=== PATIENT | male | born 1965 | race Caucasian/White ===

== ENCOUNTER 2023-10-07 06:47 | Emergency (ER) | payer BC ==
[2023-10-07 06:54] VITALS: RESP 18
--- NOTE | 2023-10-07 07:22 | ED ---
Extremity Problem HPI - General Chief complaint: Extremity Problem,Nontraumatic Stated complaint: Feet Pain Time Seen by Provider: 10/07/23 07:19 Source: patient, RN notes reviewed, old records reviewed Mode of arrival: wheelchair Limitations: no limitations - History of Present Illness Initial comments: This is a 57-year-old male to the ER for evaluation of severe right foot pain right leg pain and swelling pain and swelling actually in both legs with recent long driving and concern for DVT. Patient's pain does seem to be isolated in the right great toe with redness no trauma no other complaints MD Complaint: extremity pain, extremity swelling, joint swelling, joint pain -: days(s) Location: right, toe History of Same: Yes -: Yes arthralgia Radiation: proximal Severity scale (1-10): 5 Quality: aching Consistency: constant Improves with: nothing Worsens with: nothing Associated Symptoms: denies other symptoms - Related Data Previous Rx's Medication Instructions Recorded Indomethacin 25 mg PO TID #25 capsule 10/07/23 Allergies Allergy/AdvReac Type Severity Reaction Status Date / Time No Known Allergies Allergy Verified 10/07/23 06:52 Review of Systems ROS Statement: Those systems with pertinent positive or pertinent negative responses have been documented in the HPI. ROS Other: All systems not noted in ROS Statement are negative. Past Medical History Past Medical History: No Reported History History of Any Multi-Drug Resistant Organisms: None Reported Past Surgical History: No Surgical Hx Reported Past Psychological History: No Psychological Hx Reported Smoking Status: Never smoker Past Alcohol Use History: Occasional Past Drug Use History: None Reported General Exam Limitations: no limitations General appearance: alert, in no apparent distress Head exam: Present: atraumatic, normocephalic, normal inspection Eye exam: Present: normal appearance, PERRL, EOMI. Absent: scleral icterus, conjunctival injection, periorbital swelling ENT exam: Present: normal exam, mucous membranes moist Neck exam: Present: normal inspection. Absent: tenderness, meningismus, lymphadenopathy Respiratory exam: Present: normal lung sounds bilaterally. Absent: respiratory distress, wheezes, rales, rhonchi, stridor Cardiovascular Exam: Present: regular rate, normal rhythm, normal heart sounds. Absent: systolic murmur, diastolic murmur, rubs, gallop, clicks GI/Abdominal exam: Present: soft, normal bowel sounds. Absent: distended, tenderness, guarding, rebound, rigid Extremities exam: Present: normal inspection, full ROM, normal capillary refill. Absent: tenderness, pedal edema, joint swelling, calf tenderness Back exam: Present: normal inspection Neurological exam: Present: alert, oriented X3, CN II-XII intact Psychiatric exam: Present: normal affect, normal mood Skin exam: Present: warm, dry, intact, normal color. Absent: rash Course Vital Signs 10/07/23 10/07/23 06:50 09:38 Temperature 98.1 F 97.9 F Pulse Rate 79 70 Respiratory 18 18 Rate Blood Pressure 155/91 168/96 O2 Sat by Pulse 98 98 Oximetry - Reevaluation(s) Reevaluation #1: 10/07/23 08:32 Medical records reviewed Reevaluation #2: 10/07/23 08:32 Symptoms improved Reevaluation #3: 10/07/23 08:32 Patient informed of results questions answered Reevaluation #4: Was pt. sent in by a medical professional or institution (, PA, SALES OPERATIONS COORDINATOR, urgent care, hospital, or correction...) When possible be specific @ -no Did you speak to anyone other than the patient for history (EMS, parent, family, police, friend...)? What history was obtained from this source @ -no Did you review nursing and triage notes (agree or disagree)? Why? @ -agree Are old charts reviewed (outside hosp., previous admission, EMS record, old EKG, old radiological studies, urgent care reports/EKG's, correction records)? Report findings @ -yes Differential Diagnosis (chest pain, altered mental status, abdominal pain women, abdominal pain men, vaginal bleeding, weakness, fever, dyspnea, syncope, headache, dizziness, GI bleed, back pain, seizure, CVA, palpatations, mental health, musculoskeletal)? @ -prior EKG interpreted by me (3pts min.). @ -no X-rays interpreted by me (1pt min.). @ -yes negative for acute disease CT interpreted by me (1pt min.). @ -no U/S interpreted by me (1pt. min.). @ -yes negative for acute disease What testing was considered but not performed or refused? (CT, X-rays, U/S, labs)? Why? @ -none What meds were considered but not given or refused? Why? @ -none Did you discuss the management of the patient with other professionals (professionals i.e. , PA, SALES OPERATIONS COORDINATOR, lab, RT, psych nurse, social professionals, health analytics consultant, teacher, conservation enforcement officer, upper caser)? Give summary @ -no Was smoking cessation discussed for >3mins.? @ -no Was critical care preformed (if so, how long)? @ -no Were there social determinants of health that impacted care today? How? (Homelessness, low income, unemployed, alcoholism, drug addiction, transportation, low edu. Level, literacy, decrease access to med. care, [facility], rehab)? @ -none Was there de-escalation of care discussed even if they declined (Discuss DNR or withdrawal of care, Hospice)? DNR status @ -no What co-morbidities impacted this encounter? (DM, HTN, Smoking, COPD, CAD, Cancer, CVA, ARF, Chemo, Hep., AIDS, mental health diagnosis, sleep apnea, morbid obesity)? @ -none Was patient admitted / discharged? Hospital course, mention meds given and route, prescriptions, significant lab abnormalities, going to OR and other pertinent info. @ - 57 male with findings of gouty tophus patient will be placed on appropriate anti-inflammatories and can be discharged home Discharge gout Undiagnosed new problem with uncertain prognosis? @ -no Drug Therapy requiring intensive monitoring for toxicity (Heparin, Nitro, Insulin, Cardizem)? @ -no Were any procedures done? @ -no Diagnosis/symptom? @ - Acute, or Chronic, or Acute on Chronic? @ -Acute Uncomplicated (without systemic symptoms) or Complicated (systemic symptoms)? @ -Complicated Side effects of treatment? @ -no Exacerbation, Progression, or Severe Exacerbation? @ -exacerbation Poses a threat to life or bodily function? How? (Chest pain, [place], [place], pneumonia, PE, COPD, DKA, ARF, appy, cholecystitis, CVA, Diverticulitis, Homicidal, Suicidal, threat to staff... and all critical care pts) @ -no Medical Decision Making - Medical Decision Making 57 male with findings of gouty tophus patient will be placed on appropriate anti-inflammatories and can be discharged home - Radiology Data Radiology results: report reviewed (Ultrasound lower extremity negative DVT x- ray negative for acute disease), image reviewed Disposition Clinical Impression: Gouty arthritis of right great toe Disposition: HOME SELF-CARE Condition: Good Instructions (If sedation given, give patient instructions): Gout (ED) Prescriptions: Indomethacin 25 mg PO TID #25 capsule Is patient prescribed a controlled substance at d/c from ED?: No Referrals: None,Stated [Primary Care Provider] - 1-2 days Time of Disposition: 09:00
[2023-10-07] MEDS: INDOMETHACIN 25 MG CAP PO STA (08:54)
--- NOTE | 2023-10-07 09:02 | US ---
EXAMINATION TYPE: US venous doppler duplex LE BI DATE OF EXAM: 10/07/2023 8:19 AM COMPARISON: NONE CLINICAL INDICATION: Male, 57 years old with history of pain; bilat calf pain after 10 hr car ride SIDE PERFORMED: Bilateral TECHNIQUE: The lower extremity deep venous system is examined utilizing real time linear array sonog logan with graded compression, doppler sonography and color-flow sonography. VESSELS IMAGED: Common Femoral Vein Deep Femoral Vein Greater Saphenous Vein * Femoral Vein Popliteal Vein Small Saphenous Vein * Proximal Calf Veins (* superficial vessels) Right Leg: Negative for DVT Left Leg: Negative for DVT IMPRESSION: Grayscale, color doppler, spectral doppler imaging performed of the deep veins of the lo wer extremities. There is normal flow, compressibility, vascular waveforms.
--- NOTE | 2023-10-07 09:10 | XR ---
EXAMINATION TYPE: XR foot complete RT DATE OF EXAM: 10/07/2023 9:06 AM CLINICAL INDICATION:Male, 57 years old with history of pain; [facility] COMPARISON: None TECHNIQUE: XR foot complete RT examined in the AP, oblique, and lateral projections. FINDINGS: No evidence of any acute osseous pathology. No evidence of soft tissue swelling. Accessory ossicles are present. Calcaneal plantar spurring is present. IMPRESSION: 1. No evidence of acute fracture. 2. Mild degeneration changes throughout the joints of the foot. 3. Mild hallux valgus.
[2023-10-07 09:47] VITALS: BP 168/96; PULSE 70; TEMP 97.9
== END 2023-10-07 09:48 | disposition home or self-care (01) ==
LOC: EC 06:47
DX: M10.071 Idiopathic gout, right ankle and foot (principal)
CPT/HCPCS: 93970; 99284